=== PATIENT | female | born 1975 | race Two or more races ===

== ENCOUNTER 2019-12-08 10:47 | Inpatient (IN) | payer OTHER ==
[~2019-12-08] VITALS: Ht 152.4 cm; Wt 68.0 kg
[2019-12-10] MEDS ORDERED: INTEGRA F CAPS1 EACH PO (09:02)
[2019-12-10] MEDS ORDERED: OBSTETRIX ONE1 EACH PO (09:02)
[2019-12-10] MEDS ORDERED: FOLIC ACID1 MG PO (09:02)
== END 2019-12-18 09:19 | disposition home or self-care (01) | DRG 831 ==
LOC: NST 10:47 → LDR 11:31 → OB/GYN 11:31
PROVIDERS: ADMIT Obstetrics & Gynecology Maternal & Fetal Medicine
PROC: 4A1HXCZ Monitoring of Products of Conception, Cardiac Rate, External Approach (ICD-10-PCS; 2019-12-08)
PROC: 4A033R1 Measurement of Arterial Saturation, Peripheral, Percutaneous Approach (ICD-10-PCS; 2019-12-12)
PROC: 3E0F7GC Introduction of Other Therapeutic Substance into Respiratory Tract, Via Natural or Artificial Opening (ICD-10-PCS; 2019-12-13)
PROC: 4A09X1Z Measurement of Respiratory Capacity, External Approach (ICD-10-PCS; 2019-12-13)
PROC: 3E0F7GC Introduction of Other Therapeutic Substance into Respiratory Tract, Via Natural or Artificial Opening (ICD-10-PCS; principal; 2019-12-14)
DX: O99.513 Diseases of the respiratory system complicating pregnancy, third trimester (principal); J18.9 Pneumonia, unspecified organism; O60.03 Preterm labor without delivery, third trimester; O30.003 Twin pregnancy, unspecified number of placenta and unspecified number of amniotic sacs, third trimester; I80.8 Phlebitis and thrombophlebitis of other sites
CPT/HCPCS: 71275